=== PATIENT | female | born 1980 | race African-American/Black ===

== ENCOUNTER 2019-08-21 11:37 | Emergency (ER) | payer MEDICAID ==
[~2019-08-21] VITALS: Ht 165.1 cm; Wt 68.1 kg
[2019-08-21 12:04] VITALS: BP 171/106
[2019-08-21] MEDS ORDERED: FAMOTIDINE 20MG TABLET PO ONE (13:30)
[2019-08-21] MEDS ORDERED: PREDNISONE 20MG TABLET PO ONE (13:30)
[2019-08-21] MEDS ORDERED: DIPHENHYDRAMINE 25MG CAPSULE PO ONE (13:30)
== END 2019-08-21 14:05 | disposition home or self-care (01) ==
LOC: ER 11:37
DX: R21 Rash and other nonspecific skin eruption (principal)
CPT/HCPCS: 99284; J7512; Q0163